=== PATIENT | male | born 2000 | race Caucasian/White ===

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

== ENCOUNTER 2023-08-07 18:26 | Emergency (ER) | payer OTHER ==
[~2023-08-07] VITALS: Ht 170.2 cm; Wt 90.7 kg
[2023-08-07 19:00] VITALS: BP 122/55; PULSE 95; RESP 20; TEMP 98; O2SAT 98
[2023-08-07 20:05] VITALS: BP 122/55; PULSE 95; RESP 20; TEMP 98; O2SAT 98
== END 2023-08-07 20:05 | disposition home or self-care (01) ==
LOC: MED 18:26
DX: R00.2 Palpitations (principal); F43.9 Reaction to severe stress, unspecified; R20.0 Anesthesia of skin; M25.511 Pain in right shoulder; F41.9 Anxiety disorder, unspecified; F17.200 Nicotine dependence, unspecified, uncomplicated; F12.90 Cannabis use, unspecified, uncomplicated; Z71.6 Tobacco abuse counseling
CPT/HCPCS: 93005; 99283